=== PATIENT | female | born 1965 | race Caucasian/White ===

== ENCOUNTER → 2022-06-17 | Emergency (ER) | payer OTHER ==
[~2022-06-17] VITALS: Ht 167.6 cm; Wt 70.3 kg
== END | disposition left against medical advice (07) ==
LOC: ER 15:09
DX: Z53.21 Procedure and treatment not carried out due to patient leaving prior to being seen by health care provider (principal)

== ENCOUNTER 2024-06-06 09:15 | Emergency (ER) | payer OTHER ==
[~2024-06-06] VITALS: Ht 167.6 cm; Wt 70.3 kg
[2024-06-06] MEDS ORDERED: ROSUVASTATIN CA20 MG PO (09:44)
[2024-06-06] MEDS ORDERED: KETOROLAC TROMETHAMINE 30 MG VIAL IM STA (10:53)
[2024-06-06] MEDS ORDERED: KETOROLAC TROMETHAMINE 60 MG VIAL IM ONE (11:02)
== END 2024-06-06 11:07 | disposition home or self-care (01) ==
LOC: ER 09:17
DX: L30.9 Dermatitis, unspecified (principal); B35.9 Dermatophytosis, unspecified